=== PATIENT | male | born 1995 | race Caucasian/White ===

== ENCOUNTER 2024-08-01 15:39 | Emergency (ER) | payer MEDICAID ==
[~2024-08-01] VITALS: Ht 175.3 cm; Wt 75.0 kg
[2024-08-01 15:41] VITALS: BP 162/89; PULSE 128; RESP 20; TEMP 37.3; O2SAT 98
[2024-08-01] MEDS: LORAZEPAM 1MG TABLET PO ONE (16:31)
[2024-08-01] MEDS ORDERED: LORA-250 MT (16:40)
== END 2024-08-01 17:27 | disposition left against medical advice (07) ==
LOC: ER 17:11
DX: F41.0 Panic disorder [episodic paroxysmal anxiety] (principal)
CPT/HCPCS: 99283